=== PATIENT | male | born 1995 | race Caucasian/White ===

== ENCOUNTER 2025-01-05 12:52 | Emergency (ER) | payer SELFPAY ==
[~2025-01-05] VITALS: Ht 180.3 cm; Wt 106.2 kg
[2025-01-05 12:58] VITALS: PULSE 90; RESP 20; TEMP 96.7
[2025-01-05] MEDS: SODIUM CHLORIDE 0.9% 1000ML 1,000 ML IV ONE (13:30)
[2025-01-05] MEDS: ONDANSETRON HCL INJ 2MG/ML 2ML 2 MG/ML VIAL IV STA (13:30)
[2025-01-05] MEDS: KETOROLAC TROMETHAMINE 30 MG/ML VIAL IV STA (13:42)
[2025-01-05] MEDS ORDERED: ONDANSETRON ODT4 MG PO (14:58)
[2025-01-05 15:31] VITALS: BP 119/70; PULSE 88; RESP 20; TEMP 98.5; O2SAT 97
== END 2025-01-05 15:30 | disposition home or self-care (01) ==
LOC: FSED 12:58
DX: R11.2 Nausea with vomiting, unspecified (principal); K52.9 Noninfective gastroenteritis and colitis, unspecified; R10.9 Unspecified abdominal pain; R42 Dizziness and giddiness; R53.81 Other malaise
CPT/HCPCS: 80048; 80076; 81003; 85025; 99284; J1885; J2405; J7030